=== PATIENT | male | born 1995 | race Caucasian/White ===

== ENCOUNTER 2017-11-18 14:02 | Emergency (ER) | payer OTHER ==
[2017-11-18 14:14] VITALS: BP 138/71
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
== END 2017-11-18 14:44 | disposition home or self-care (01) ==
LOC: ER 14:02
DX: S00.93XA Contusion of unspecified part of head, initial encounter (principal); S10.91XA Abrasion of unspecified part of neck, initial encounter; R51 Headache; V48.5XXA Car driver injured in noncollision transport accident in traffic accident, initial encounter; Y93.89 Activity, other specified
CPT/HCPCS: 99284